=== PATIENT | male | born 1955 | race Caucasian/White ===

== ENCOUNTER 2019-02-22 16:13 | Inpatient (IN) | payer OTHER ==
[~2019-02-22] VITALS: Ht 162.6 cm; Wt 109.0 kg
[2019-02-22 18:10] VITALS: BP 128/86
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
[2019-02-22 19:51] LABS: HEMOGLOBIN 13.7 gm/dL (14.0-18.0)
[2019-02-22 19:53] LABS: HEMATOCRIT 42.7 % (42.0-52.0); MCH 29.4 pg (26.0-34.0); MCV 91.7 fL (80.0-100.0); PLATELET COUNT 211 thou/uL (150-400); RBC 4.66 mil/uL (4.50-6.00); RDW 15.4 % (10.5-14.5); WBC 9.5 thou/uL (4.0-11.0)
[2019-02-22 19:58] LABS: CALCIUM 9.1 mg/dL (8.5-10.1); CREATININE 0.9 mg/dL (0.7-1.3); POTASSIUM 4.5 mmol/L (3.5-5.1)
[2019-02-22 20:05] LABS: ALBUMIN 3.2 g/dL (3.4-5.0); DIRECT BILIRUBIN 0.1 mg/dL (<0.1-0.3); TOTAL BILIRUBIN 0.2 mg/dL (<0.1-1.0); TOTAL PROTEIN 6.7 g/dL (6.4-8.2)
[2019-02-22 20:26] LABS: ABSOLUTE NEUTROPHILS 5.8 thou/uL (1.4-8.2)
[2019-02-22 20:28] LABS: PLATELET ESTIMATE NORMAL
[2019-02-22 21:14] VITALS: BP 144/86
[2019-02-22 21:53] LABS: BE(vivo) 3.9 mmol/L (-2 to +3); HCO3 32.3 mmol/L (22.0-26.0); PCO2 66.9 mmHg (35.0-45.0); PO2 81.6 mmHg (80.0-100.0); pH 7.302 (7.360-7.450); sO2 94.6 % (92.0-98.0)
[2019-02-22 23:36] LABS: URINE BILIRUBIN NEGATIVE (Negative); URINE BLOOD NEGATIVE (Negative); URINE CLARITY CLEAR; URINE COLOR YELLOW; URINE GLUCOSE-RANDOM* 2+ (Negative); URINE KETONES NEGATIVE (Negative); URINE LEUKOCYTES NEGATIVE (Negative); URINE NITRITE NEGATIVE (Negative); URINE PROTEIN (DIPSTICK) NEGATIVE (Negative); URINE SPECIFIC GRAVITY 1.025 (1.005-1.035); URINE UROBILINOGEN 0.2 E.U./dl (0.2-1.0)
[2019-02-23] VITALS: BP 132/74
[2019-02-23 02:07] LABS: BE(vivo) -0.7 mmol/L (-2 to +3); HCO3 25.9 mmol/L (22.0-26.0); PCO2 50.3 mmHg (35.0-45.0); PO2 62.4 mmHg (80.0-100.0); sO2 90.1 % (92.0-98.0)
[2019-02-23 02:08] LABS: pH 7.329 (7.360-7.450)
[2019-02-23 02:16] LABS: AMP/METHAMP Negative (Negative); BARBITURATES Negative (Negative); BENZODIAZEPINES Negative (Negative); COCAINE Negative (Negative); METHADONE Negative (Negative); OPIATES Negative (Negative); PCP Negative (Negative)
[2019-02-23 04:00] VITALS: BP 133/80
--- NOTE | 2019-02-23 04:31 | NUR ---
ASSUMED PT CARE AROUND 1900. PT NEWLY ADMITTED TO FLOOR. PT VSS AND AFEBRILE. PT IS INCONTINENT HOWEVER WAS ABLE TO USE URINAL AND PROVIDE SAMPLE. SPUTUM SAMPLE COLLECTED. PT PLACED ON CONTINUOUS OXYGENATION MONITOR PER PHYSICIAN. OXYGEN CHANGED FROM 2L TO 1L PER PHYSICIAN. PT WAS ABLE TO SLEEP ONCE MEDICATIONS GIVEN AND HAS CONTINUED TO SLEEP THRU NIGHT WITH MINIMAL INTERRUPTIONS. WILL CONTINUE TO MONITOR PER PT POC.
[2019-02-23 05:48] LABS: CALCIUM 8.6 mg/dL (8.5-10.1); CREATININE 0.9 mg/dL (0.7-1.3)
--- NOTE | 2019-02-23 07:41 | EKG ---
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 TANG : 1955 Requested By: Alex Prado Order Number: [id number] MD: Alexander Harvey Measurements Intervals Graham Rate: 70 P: 30 WY: 129 QRS: 78 QRSD: 110 T: 14 QT: 404 QTc: 436 Interpretive Statements Sinus rhythm No significant abnormality No previous ECG available for comparison Electronically Signed On 02-23-2019 7:41:33 COMPTROLLER by Alexander Harvey [email or web address] <ELECTRONICALLY SIGNED> By: Alexander Harvey MD, [facility] 02/23/19 0741 [id number] Alexander Harvey MD, FACC /EPI
[2019-02-23 08:00] VITALS: BP 119/66
--- NOTE | 2019-02-23 10:31 | H ---
[facility] [address] [address] HISTORY AND PHYSICAL Name: KEVIN SHEEHAN Room #: 216-P ADM IN M.R.#: [id number] Admission: 02/22/19 Attend Phys: Alex Prado MD Discharge: Date of : 53 Report #: [id number] THIS REPORT FOR: //name// CC: * [facility] JOSE Prado DATE OF SERVICE: 02/22/2019 CHIEF COMPLAINT: Altered mental status. HISTORY OF PRESENT ILLNESS: The patient is a 63-year-old male, resident of the [facility] and under the care of public senior pensions administrator. He has been hospitalized at least once if not twice recently at [facility] with pneumonia and COPD exacerbation. During his post-discharge recovery period at a residential care facility, he has been behaving very badly to female staff and verbally implying very sexual behavior with them. He has also been acting manicy, not sleeping much and chain smoking continuously for the last several days at least and very little if any sleep. The patient is not a very good historian at this time and snider contrast to his usual self. PAST MEDICAL HISTORY: Includes COPD and COPD exacerbations, recent pneumonia, bipolar affective disorder, hypertension. He is a smoker. He has had problems with obesity and hypokalemia in the past. He has benign prostate hypertrophy and had urinary tract infections because of obstructive uropathy in the past. He has had balanitis and he has steroid diabetes. MEDICATIONS: At the facility currently include prednisone on a tapering schedule. He finished a recent course of antibiotics with Levaquin. He takes doxazosin nightly for anxiety and blood pressure, Zoloft 100 mg daily, potassium chloride in the past, but not at present, DuoNeb treatments 4 times a day and p.r.n., Haldol 5 mg every 4 hours for anxiety for the last few days, Abilify nightly, Zyrtec for seasonal allergies, metformin 500 mg twice daily, Lantus 10 units nightly. ALLERGIES: He has no known drug allergies. SOCIAL HISTORY: He is originally from [place]. 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 He has a history of abusing alcohol and tobacco and methamphetamines in the remote past. It is noteworthy that the staff at [facility], where he resides, obtained a stat urine drug screen yesterday, which was reportedly negative. I have not seen the official report. REVIEW OF SYSTEMS: The patient is completely unreliable today. He talks [facility] [address] [place] [address] HISTORY AND PHYSICAL Name: KEVIN SHEEHAN Room #: 216-P [facility] IN M.R.#: [id number] Admission: 02/22/19 Attend Phys: Alex Prado MD Discharge: Date of : 53 Report #: [id number] quickly, does not always make sense and his conversation is a series of non sequiturs. PHYSICAL EXAMINATION: VITAL SIGNS: On admission, the temperature was 98.2, pulse 71, respirations 18 per minute, blood pressure 128/86 and his oxygen saturation on room air was 89%. He was placed on 2 liters and oxygen saturation came up to 95%. His weight on a bed scale on admission was 230 pounds. GENERAL: The patient is a heavy set, approximately 5 feet 4-inch male, in no apparent distress with mildly pressured speech. HEENT: Extraocular muscles are intact. Face is somewhat reddened, but he shows no signs of distress. His oropharynx is slightly dry. Sinus is nontender. NECK: Without adenopathy or thyromegaly or mass. It is not supple. LUNGS: Diffusely wheezy bilaterally with inspiratory and expiratory wheezing. Retractions are not seen, however. CARDIOVASCULAR: Distant, but regular. ABDOMEN: Soft. Bowel sounds are present, no visceromegaly or masses noted today. EXTREMITIES: No cyanosis or clubbing, with the patient on 2 liters per nasal cannula. There is no peripheral edema. Peripheral pulses easily palpated in all 4 distal extremities. MENTAL STATUS: The patient is alert, oriented to person and place, but not time. He is not overtly delusional at the time of my visit, but I have had multiple reports of it prior to his admission from staff at [facility]. He is very animated, but admits to feeling tired tonight. No focal deficits of sensation, motor function, deep tendon reflexes are noted. I did not test his gait. He was able to move all 4 extremities on command and separately. LABORATORY DATA: EKG shows a sinus rhythm with some minimal anterior segment ST elevations and a rate of 70. Labs are as follows: CBC shows a white count of 9500, on steroids, with a differential of 61% segs, 34% lymphs, 4% monocytes, 1% basophils and the absolute neutrophil count was 5800. The hemoglobin was 13.7 with hematocrit of 42.7. The red cell indices show MCV of 91.7 and RDW of 15.4, the latter being slightly elevated and the platelet count is normal at 211,000. Chemistry shows a sodium of 140, potassium 4.5, chloride 102, bicarbonate 35, BUN of 20, creatinine 0.9. The anion gap is decreased at 3. The glucose is 191. The AST is 15, ALT is 26, total bilirubin 0.2, calcium of 9.1, alkaline phosphatase 76, total protein 6.7, albumin 3.2, slightly depressed. The estimated GFR is 85. NT-proBNP was 79 and normal. The procalcitonin level was less than 0.05 and normal. Arterial blood gas was performed on 2 liters of oxygen per nasal cannula and revealed a pH of 7.302 with significant acidosis, pCO2 was elevated at 66.9 and the pO2 was 81.6. Lactate level was 1.34 and normal. Carboxyhemoglobin was [facility] [address] [place] [address] HISTORY AND PHYSICAL Name: KEVIN SHEEHAN Room #: 216- ADM IN M.R.#: [id number] Admission: 02/22/19 Attend Phys: Alex Prado MD Discharge: Date of : 53 Report #: [id number] significantly elevated at 7.2. Chest x-ray was performed. This revealed nonspecific peribronchial wall thickening and increased interstitial opacities in bilateral lung lyles which can be seen with asthma or viral infection/infectious bronchiolitis and finally an Accu-Chek was done after the patient's arrival in the unit and his nonfasting glucose was 307. ASSESSMENT AND PLAN: 1. Chronic obstructive pulmonary disease exacerbation with acute on chronic respiratory failure. I will be getting a Pulmonary consult, have started him on aggressive pulmonary toilet with DuoNeb treatments and put a call out for Dr. Rick, who is back tender insulation board tonight. I instructed the staff to lower his supplemental oxygen from 2 liters per nasal cannula per minute down to 1 liter per nasal cannula per minute and we will have him on continuous oximetry for now. Because of his mental health needs, including use of significantly sedating medications, he needs to be monitored very closely in the hospital and he may ultimately require transfer to the Intensive Care Unit if he proves too unstable. For now, I will start him on intravenous steroids and antibiotics after cultures have been obtained and we will await further developments. 2. Manic episode in a patient with a history of bipolar affective disorder. The patient has had a negative urine drug screen prior to this admission, but I will repeat it to make sure of the results. While the patient's cosme is probably being aggravated by the lengthy and high dose use of steroids, I suspect he needs an inpatient stay to help adjust his medication regimen and get him back under control. At baseline, he is generally quite pleasant and is not insulting to others or hypersexual and generally is able to sleep much more comfortably. 3. Smoker -- the patient has a severe smoking problem. We will stop it immediately and put him on a nicotine patch for now until his brain chemistry can be sorted out to his benefit. His ability to have any insight into this problem is very limited. 4. Hypertension. We will monitor and treat accordingly. 5. Hyperglycemia (probable steroid diabetes) -- hemoglobin A1c has been ordered and result is pending. We will continue on his regimen from [facility] and at a moderate intensity sliding scale, short-acting insulin to the mix. It will be hard to predict his insulin needs while he is taking these steroids for his lungs. 6. Benign prostatic hypertrophy -- appears stable. Urinalysis pending. <ELECTRONICALLY SIGNED> By: Alex Prado MD 02/23/19 1031 [id number] Alex Prado MD /nt
[2019-02-23 12:33] VITALS: BP 109/61
[2019-02-23 16:00] VITALS: BP 118/60
--- NOTE | 2019-02-23 16:02 | NUR ---
patient admits from [facility]. Patient admits with PNA and hx of Bipolar. Sp with Radha at [facility] plan return once stable for dc. Left message with [employer] public microsoft exchange administrator with [facility] Juan Pittman [phone], message left of role of casemgr. Tenative plan return once medically stable. Rayo following
--- NOTE | 2019-02-23 18:22 | NUR ---
ASSUMED CARE AT 0700, SHIFT ASSESSMENT DONE, MEDS GIVEN, VSS. DENIES PAIN, NAUSEA, VOMITING. UP WITH STANDBY, NSR ON TELE. INCONTINENT OF BOWEL AND BLADDER. HAD A BM TODAY. REMAINS ON 1LNC, ON CONTINUOUS PULSE OX. WILL CONTINUE TO ASSESS AND ASSISTI WITH ADLs NEEDED.
[2019-02-23 20:05] VITALS: BP 121/62
[2019-02-24 00:05] LABS: GLYCOHEMOGLOBIN (HGB A1C) 8.6 % (4.8-5.6)
--- NOTE | 2019-02-24 05:15 | NUR ---
ASSUMED PT CARE AROUND 1900. PT VSS WITH NO C/O PAIN N/V/D. PT WAS RESTING IN BED. PT QUESTIONED WHEN HE WOULD BE ABLE TO LEAVE. ADVISED THAT IS SOMETHING HE SHOULD DISCUSS WITH HIS PHYSICIAN. PT APPEARED TO BE OKAY WITH THAT STATEMENT. PT ASSESSMENT CHARTED AND MEDICATION GIVEN PER EMAR. PT SLEPT THRU MAJORITY OF NIGHT WITH MINIMAL INTERRUPTIONS. WILL CONTINUE TO MONITOR PER PT POC.
[2019-02-24 06:12] VITALS: BP 121/57
[2019-02-24 08:00] VITALS: BP 109/58
[2019-02-24 12:00] VITALS: BP 116/64
--- NOTE | 2019-02-24 15:59 | NUR ---
PT ASSESSED AT START OF SHIFT. NO C/O PAIN. BREATHING EVEN AND NONLABORED. LUNGS COARSE W/ OCC NONPRODUCTIVE COUGH. CALM AND COOPERATIVE. UP TO THE CHAIR MUCH OF SHIFT. HAD GOOD BM THIS AM. EATING WELL. IV STEROIDS
--- NOTE | 2019-02-24 16:07 | NUR ---
ASSUMED CARE AT 1600, PREVIOUS RN SENT HOME EARLY. SR PER TELE. DOZING IN BEDSIDE CHAIR, RESP EVEN AND UNLABORED. FALL PRECAUTIONS IN PLACE. CLOSE TO NURSES' STATION. WILL FOLLOW CLOSELY.
[2019-02-24 16:39] VITALS: BP 157/79
[2019-02-24 19:45] VITALS: BP 117/56
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
[2019-02-25] VITALS (7 sets, daily range): BP systolic 99–130; BP diastolic 50–66
[2019-02-25 04:09] LABS: CALCIUM 9.1 mg/dL (8.5-10.1); POTASSIUM 4.6 mmol/L (3.5-5.1)
[2019-02-25 04:25] LABS: HEMATOCRIT 39.5 % (42.0-52.0); HEMOGLOBIN 12.7 gm/dL (14.0-18.0); MCHC 32.1 g/dL (28.0-37.0); MCV 90.6 fL (80.0-100.0); RBC 4.36 mil/uL (4.50-6.00); RDW 15.1 % (10.5-14.5); WBC 11.5 thou/uL (4.0-11.0)
--- NOTE | 2019-02-25 05:07 | NUR ---
ASSUMED PT CARE AT 1900. PT IS LAYING IN BED, STABLE. NO SIGN OF DISTRESS NOTED IN PT. PT IS APPROPRIATE WITH STAFF. FALL PRECAUTION IN PLACE. ASSESSMENT COMPLETED AND DOCUMENTED. WHILE SLEEPING, PATIENT'S O2 LEVEL WENT DOWN TO THE 60'2 ON 2L NC, O2 LEVEL HAD TO BE INCREASED UP TO 4L AND SATURATION WAS IN THE 90'S. SCHEDULED MEDS ADMINISTERED TO PT. TOLERATED PO INTAKE. DENIES ANY PAIN, SLEEPS THROUGH THE NIGHT. NO FURTHER NEEDS AT THIS TIME. CONTINUE TO MONITOR PATIENT.
[2019-02-25 07:06] LABS: HAV IgM AB (ANTI-HAV IgM) Negative (Negative); HEPATITIS B SURFACE AG Negative (Negative); HEPATITIS C VIRUS AB 0.2 (0.0-0.9)
--- NOTE | 2019-02-25 18:54 | NUR ---
ASSUMED CARE 0700. ALERT X3, DENIES PAIN, UP WITH ASSIST X1, NSR ON TELE. ON RA WITH SATS MANAGED WIHT CONTINUOUS PULSE OX. LUNGS DEMINISED. CURRENT SMOKER NICOTINE PATCH ON RIGHT ARM. PT VOICED HE WANTS TO GO HOME. FALL PRECAUTIONS REMAIN IN PLACE. CALLS APPROPRIATLY.
[2019-02-26 04:04] VITALS: BP 137/73
--- NOTE | 2019-02-26 06:37 | NUR ---
PT ALERT AND ORIENTED. PT HAD A RESTFUL NIGHT. INCONTINENT EPISODES X2. SKIN EXCORIATION AROUND THE GROIN AND BUTTOCK AREA.
[2019-02-26 07:30] VITALS: BP 140/72
[2019-02-26 11:40] VITALS: BP 121/71
[2019-02-26 16:30] VITALS: BP 118/75
--- NOTE | 2019-02-26 16:32 | NUR ---
ASSUMMED PT CARE AT APPROXIMATELY 0700. PT A&O X4. ASSESSMENT CHARTED. FALL PRECAUTIONS IN PLACE. PT DENIED HAVING CHEST PAIN. PT DENIES HAVING SOB. PT DENIES HAVING ACUTE PAIN. PT EDUCATED ABOUT POC. PT STATED UNDERSTANDING AND DENIED HAVING FURTHER QUESTIONS. PT HAD RUN OF VTACH. DR NOTIFIED. DR IMPLEMENTED ORDERS. STATED TO CONTINUE TO MONITOR. PT BECAME FRUSTRATED AT TIMES THROUGHOUT THE DAY. PROVIDED EDUCATION AND EXPLAINATION TO THE PT. PT DENIED HAVING FRUSTRATION AFTER EXPLAINATION AND EDUCATION. VITAL SIGNS STABLE. BLOOD SUGARS STABLE. PT COMFORTABLE IN BED. PT DENIES HAVING FURTHER CONCERNS.
[2019-02-26 19:34] VITALS: BP 97/47
--- NOTE | 2019-02-26 21:26 | HC ---
[facility] [place] [address] CONSULTATION Name: KEVIN SHEEHAN Room #: 216-P ADM IN M.R.#: [id number] Admission: 02/22/19 Attend Phys: Alex Prado MD Discharge: Date of : 53 Report #: [id number] THIS REPORT FOR: //name// CC: Alex Prado REASON FOR CONSULTATION: Ventricular ectopy. HISTORY OF PRESENT ILLNESS: The patient is a 63-year-old gentleman who is a escamilla of the [facility] due to disability and psychiatric disease. He is now admitted with increasing shortness of breath and cough and has been diagnosed with COPD exacerbation with pneumonia. While on telemetry monitoring, he has had 2 brief salvos of ventricular tachycardia, the longest 12 beats in duration. This was a clinically asymptomatic rhythm disturbance. He denies chest pain, pressure or ischemic type symptoms. No heart failure symptoms including orthopnea, paroxysmal nocturnal dyspnea, or lower extremity edema. No history of palpitations, near-syncope, or syncope. He is an ongoing cigarette smoker. He does have a history of diabetes. PAST MEDICAL HISTORY: His past history and medical records have been reviewed and include a history of COPD, hypertension, bipolar disorder, diabetes, steroid-induced. ALLERGIES: There are no known drug allergies. MEDICATIONS: Include Zoloft, Haldol, Abilify, Zyrtec, metformin 500 mg twice daily, Lantus at night. 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 He has a history of alcohol and methamphetamine use. He resides at [facility]. FAMILY HISTORY: Unremarkable for premature coronary artery disease. REVIEW OF SYSTEMS: All systems negative except as that noted above. PHYSICAL EXAMINATION: GENERAL: A pleasant gentleman in no distress. VITAL SIGNS: Blood pressure is 120/70, heart rate is 70 and regular. He is afebrile. HEENT: There are neither xanthelasma, subcutaneous xanthomata, oral mucosal or digital cyanosis, or kyphoscoliosis present. CHEST: Clear to auscultation and percussion. CARDIAC: Regular rate and rhythm with normal S1, S2. No murmurs, gallops, or rubs. ABDOMEN: Soft and nontender. EXTREMITIES: Without cyanosis, clubbing, or edema. Radial pulses are 2+. NEUROLOGIC: He is alert with a nonfocal exam. [facility] [place] [place] [address] [place] [address] CONSULTATION Name: KEVIN SHEEHAN Room #: 216-[facility] IN M.R.#: [id number] Admission: 02/22/19 Attend Phys: Alex Prado MD Discharge: Date of : 53 Report #: [id number] LABORATORY DATA: Sodium is 138, potassium 4.6, creatinine 1.0, glucose 246. ProBNP of 79. Tox screen negative. White count 11.5, hemoglobin 12, hematocrit 39, and platelet count 198. Chest x-ray demonstrates peribronchial wall thickening and bronchiolitis. EKG: Sinus rhythm without acute ST or T-wave changes. IMPRESSION: 1. Chronic obstructive pulmonary disease exacerbation; lower respiratory tract infection. 2. Cywie-cp-luejayc respiratory failure. 3. Paroxysmal ventricular tachycardia, nonsustained and asymptomatic. 4. History of bipolar affective disorder. 5. Ongoing tobacco dependency. 6. Hypertension. 7. Diabetes. RECOMMENDATIONS: 1. No specific treatment for ventricular ectopy is needed unless sustained or symptomatic. 2. Consider outpatient stress testing once recovered from pneumonia and chronic obstructive pulmonary disease exacerbation. 3. Smoking cessation counseling encouraged. Thank you for asking me to participate in the patient's care. I have discussed these issues with him in detail. <ELECTRONICALLY SIGNED> By: Alexander Harvey MD, FACC 02/26/19 2126 1313 1349 Alexander Harvey MD, FACC /nt
--- NOTE | 2019-02-26 21:54 | EKG ---
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 LINDSAY : 1955 Requested By: Alexander Harvey Order Number: [id number] MD: Alexander Harvey Measurements Intervals [place] Rate: 69 P: 56 NC: 132 QRS: 63 QRSD: 112 T: -32 QT: 412 QTc: 442 Interpretive Statements Sinus rhythm Small inferior Q waves Compared to ECG 02/22/2019 22:04:48 No significant change was found Electronically Signed On 02-26-2019 21:54:06 NEUROPHYSIOLOGICAL TECHNICIAN by Alexander Harvey [email or web address] <ELECTRONICALLY SIGNED> By: Alexander Harvey MD, [facility] 02/26/19 2154 11 11 Alexander Harvey MD, [facility] /EPI
[2019-02-27 03:39] VITALS: BP 110/56
--- NOTE | 2019-02-27 04:49 | NUR ---
ASSESSMENTS CHARTED, MEDS GIVEN DOCUMENTED. PATIENT IS INCONTINENT OF URINE, RED RASH AROUND LUPILLO AREA, PENIS AND BUTTOCK BARRIER CREAM APPLIED AFTER SKIN WAS CLEANED. CONDOM CATH APPLIED. PATIENT NOT HAPPY TO BE LIMITED TO 3 CUPS OF COFFEE A DAY. SINCE HE DRINKS IT BLACK, HE DOES NOT SEE HOW THAT AFFECTS HIS GLUCOSE LEVELS. BG WAS 190 AT HS.
[2019-02-27 08:00] VITALS: BP 100/59
[2019-02-27 12:00] VITALS: BP 93/54
[2019-02-27 16:00] VITALS: BP 100/69
--- NOTE | 2019-02-27 17:47 | NUR ---
ASSUMED CARE, ALERT AND ORIENTED X3-4. ASSESMENT DOCUMENTED. SLEEPY AND TIRED DURING THE MORNING/AFTERNOON. LUPILLO CARE WAS DONE, AND PATIENT USING URINAL TO VOID. VSS AND AFEBRILE. AND WILL CONTINUE WITH POC.
[2019-02-27 20:15] VITALS: BP 133/64
[2019-02-28 04:45] VITALS: BP 118/67
[2019-02-28 07:57] VITALS: BP 86/44
[2019-02-28 07:59] VITALS: BP 114/66
--- NOTE | 2019-02-28 14:33 | NUR ---
PT DISCHARGING TODAY BACK TO [facility] FAXED DC ORDERS/SUMMARY TO FACILITY AND SPOKE WITH VISHAL IN ADM SHE RECEIVED THEY DO NOT PROVIDE TRANSPORT SO TRANSPORTATION ARRANGED WITH [facility] FOR 1530 TODAY. SW NOTIFIED PT'S PA OF DISCHARGE. UNIT NOTIFIED AND CHART COPY PER US. RN TO CALL REPORT TO [phone].
--- NOTE | 2019-02-28 15:31 | NUR ---
ASSUMED CARE PT SHIFT CHANGE. ASSESSMENTS CHARTED. MEDS GIVEN PER MAY. PT ALERT AND ORIENTED VSS DENIES PAIN. O2 SATS WNL ON ROOM AIR. DENIES CP/ SOB. UP SBA TOLERATING WELL. APPETITE ADEQUATE. PT BEHAVIOR APPROPRIATE AND COOPERATIVE. DC ORDERS ACKNOWLEDGED AND IMPLEMENTED. REPORT CALLED TO NURSE LALA AT FACILITY. PT LEFT UNIT BY OLIVER ROSS WITH ALL BELONGINGS TELE REMOVED IV RMEOVED. PAPERWORK GIVEN TO OLIVER ROSS TRANSPORTER.
--- NOTE | 2019-03-02 13:57 | D ---
[facility] [place] [address] DISCHARGE SUMMARY Name: KEVIN SHEEHAN Room #: 216-P [facility] IN M.R.#: [id number] Admission: 02/22/19 Attend Phys: Alex Prado MD Discharge: 02/28/19 Date of : 53 Report #: [id number] THIS REPORT FOR: //name// CC: PATRICK Prado [facility] DATE OF SERVICE: 02/28/2019 HOSPITAL COURSE: The patient is a 63-year-old white male who was admitted with a COPD exacerbation and chronic respiratory failure as well as a manic episode that was at least contributed too by his altered mental status from the hypoxia and from apparent cosme with his underlying history of bipolar affective disorder. Further complicating matters is the patient's poor insight into his problems and the fact that he is a chain smoker. Because the patient required high doses of steroids to help reverse the inflammation that was going on his chest and large doses of major tranquilizer medications to control his cosme in the face of significant hypoxemia and CO2 retention at baseline, he was placed on CCU/telemetry unit and monitored closely. He was seen in consultation by Dr. Mihir Rick from Pulmonary Medicine. The patient had a chest x-ray on admission, which showed nonspecific peribronchial wall thickening and increased interstitial opacities in bilateral lung lyles which can be seen with asthma or viral infection/infectious bronchiolitis. A respiratory viral panel was obtained and was negative. His initial ABG showed a pH of 7.302 with a pCO2 of 66.9 and a pO2 of 81.6 with normal lactate levels on 2 liters of oxygen per nasal cannula. This was decreased to 1 liter of oxygen per nasal cannula and the blood gas was repeated an hour later and showed a pH of 7.329, still significantly acidotic with a pCO2 of 50.3 and a pO2 of 62.4. His lactic acid level was down to 0.82 at that time. For reasons which elude me, the entries into the computer for the arterial blood gases, have them sequentially reversed as though the one with a pCO2 of greater than 80 was the second reading and that is incorrect. Chemistry on arrival showed a sodium of 140, potassium 4.5, chloride 102, bicarbonate 35, BUN of 20, creatinine 0.9 with an anion gap of 3, glucose of 191. The AST is 15, the ALT was 26. Total bilirubin was 0.2. Calcium was 9.1, total protein was 6.7, albumin 3.2 with estimated GFR of 85. Alkaline phosphatase was 76 on that chemistry. The patient did have a rapid drug screen on arrival and that was negative for all the usual suspects. CBC was obtained on the date of admission and showed white count of 9500 with a differential of 61% segs, 34% lymphs, 4% monocytes, 1% basophils and an ANC of 5800. The hemoglobin was 13.7 with hematocrit 42.7. The red cell indices were normal with [facility] [address] [place] [address] DISCHARGE SUMMARY Name: KEVIN SHEEHAN Room #: 216-P [facility] IN M.R.#: [id number] Admission: 02/22/19 Attend Phys: Alex Prado MD Discharge: 02/28/19 Date of : 53 Report #: [id number] the exception of slightly elevated RDW at 15.4, platelet count was 211,000 and also normal. The patient had a TSH that was drawn during this hospital stay, which was 0.266, slightly suppressed. The patient had a hemoglobin A1c drawn on 02/22/2019, which was elevated at 8.6. Hepatitis panel was negative for A antibody, core antibody of hep B and surface antigen of hep B. Hep C virus antibody was measured at 0.2, which is considered a negative reading. The patient did have a urinalysis during this hospital stay, which showed 2+ glucosuria, but otherwise was normal and no microscopic was performed. The patient was treated aggressively with intravenous antibiotics, aggressive pulmonary toilet and smoking cessation. Nicotine patches were placed on his arm daily in the morning and removed at bedtime every night. The patient had several episodes of mild agitation and was easily controlled with Haldol. He was eventually able to come off of the supplemental oxygen. Consultation was obtained with Dr. Patrick Morales from the Department of Psychiatry for consideration of the patient being placed on the Adult Behavioral Health Unit. While the patient was initially somewhat agitated, he calmed down rather more quickly than expected, while we were treating the underlying causes and Dr. Morales felt that it was not appropriate to be admitted on the Behavioral Health Unit during the times that he visited the patient during the stay. DISCHARGE MEDICATIONS: At the time of discharge, the patient was on the following medications list: 1. DuoNeb treatments every 4 hours while awake and p.r.n. dyspnea. He was converted from Rocephin to Augmentin 875 mg by mouth twice a day for an additional 8 doses starting at discharge. 2. Budesonide Respules 0.5 mg per nebulizer twice a day. 3. Fish oil 1000 mg by mouth daily in the morning. 4. Doxazosin 2 mg by mouth nightly. 5. Glucagon p.r.n. hypoglycemia with blood sugars less than 70. 6. Glucophage 500 mg by mouth 3 times a day with meals. 7. Glucose 40% gel p.r.n. hypoglycemia. 8. Haldol 5 mg p.o. t.i.d. and 5 additional mg p.o. t.i.d. p.r.n. anxiety/agitation. 9. Lantus 10 units subcutaneous every night at bedtime. 10. Humalog on a sliding scale has been discontinued. 11. Loratadine 10 mg by mouth daily. 12. Lorazepam 1 mg by mouth nightly. 13. Prednisone 40 mg daily on a tapering schedule as follows: Will be 40 mg daily for 3 days as of 02/27/2019, then 20 mg daily in the morning for 3 days as of 03/02/2019, then 10 mg daily every morning for 3 days as of 03/05/2019 and then 5 mg daily for 3 days as of 03/08/2019 and then the prednisone is discontinued. [address] [address] DISCHARGE SUMMARY Name: KEVIN SHEEHAN Room #: 216-P [facility] IN ..#: [id number] Admission: 02/22/19 Attend Phys: Alex Prado MD Discharge: 02/28/19 Date of : 53 Report #: [id number] DISCHARGE DIAGNOSES: Respiratory failure with chronic obstructive pulmonary disease exacerbation; acute cosme in the setting of bipolar affective disorder; benign prostate hypertrophy; essential hypertension; obesity; steroid diabetes; type 2 diabetes mellitus, out of control; seasonal allergic rhinitis; tobacco abuse/nicotine addiction. The patient has no known drug allergies. The patient is full code blue status. I will be seeing the patient in followup at the [facility] where [facility] resides, [facility] in [facility] in the next 1-2 weeks. Please refer to my progress notes regarding my strong advocacy that he quit smoking and offers of help in regards to pursuing such. <ELECTRONICALLY SIGNED> By: Alex Prado MD 03/02/19 1357 1211 1304 Alex Prado MD /nt
[2019-03-04 06:09] LABS: INFLUENZA A Negative (Negative); INFLUENZA B Negative (Negative); METAPNEUMOVIRUS Negative (Negative); PARAINFLUENZA 1 Negative (Negative); PARAINFLUENZA 2 Negative (Negative); PARAINFLUENZA 3 Negative (Negative); RHINOVIRUS Negative (Negative); RSV A Negative (Negative); RSV B Negative (Negative)
[2019-03-06 23:06] LABS: ADENOVIRUS Negative (Negative)
== END 2019-02-28 15:30 | disposition home health service (06) | DRG 189 ==
LOC: 2N 16:13
PROVIDERS: Internal Medicine; ADMIT Internal Medicine
DX: J96.22 Acute and chronic respiratory failure with hypercapnia (principal); J44.1 Chronic obstructive pulmonary disease with (acute) exacerbation; I47.2 Ventricular tachycardia; Z68.41 Body mass index [BMI] 40.0-44.9, adult; J96.21 Acute and chronic respiratory failure with hypoxia; F31.9 Bipolar disorder, unspecified; I10 Essential (primary) hypertension; E66.9 Obesity, unspecified; J30.9 Allergic rhinitis, unspecified; N40.0 Benign prostatic hyperplasia without lower urinary tract symptoms; E11.65 Type 2 diabetes mellitus with hyperglycemia; Z79.899 Other long term (current) drug therapy; T38.0X5A Adverse effect of glucocorticoids and synthetic analogues, initial encounter; Y92.89 Other specified places as the place of occurrence of the external cause
CPT/HCPCS: 10081